=== PATIENT | male | born 1960 | race Caucasian/White ===

== ENCOUNTER 2016-12-11 12:29 | Outpatient (CLI) | payer OTHER ==
--- NOTE | 2016-12-11 14:25 | DIAGNOSTIC IMAGING REPORT ---
PROCEDURE: MR LUMBAR SPINE W/O CONTRAST INDICATION: SPONDYLOLISTHESIS TECHNIQUE: Noncontrast T1, T2, and STIR sagittal images. T1 and T2 axial images. COMPARISON: None. FINDINGS: Normal alignment without fracture or suspicious osseous lesion. Mild spur formation with desiccation of the lumbar discs and multilevel disc bulging. Normal conus. Paraspinal soft tissues are normal. L1-2: Normal appearance. L2-3: Minor disc bulging/spur complex but no significant foraminal narrowing. No spinal stenosis. L3-4: Moderate broad-based disc bulge/spur complex with mild facet arthropathy. There is mild to moderate right and mild left foraminal stenosis. Mild spinal stenosis. L4-5: Moderate broad-based disc bulge/spur complex cyst with moderately severe facet arthropathy. Mild to moderate bilateral foraminal stenosis. Mild spinal stenosis. L5-S1: Large left posterior disc herniation superimposed on a broad-based disc bulge with spur complex and mild facet from arthropathy. There is severe left foraminal stenosis. No spinal stenosis. IMPRESSION: 1. Moderate degenerative changes with multilevel disc bulging 2. Mild L3-4 and L4-5 spinal stenosis 3. Mild to moderate right and mild left L3-4, mid to moderate bilateral L4-5 foraminal stenosis 4. L5-S1 large left posterior disc herniation with severe left foraminal stenosis
== END 2016-12-12 15:51 | disposition home or self-care (01) ==
LOC: MRI SRH 12:29
DX: M51.26 Other intervertebral disc displacement, lumbar region (principal); M51.27 Other intervertebral disc displacement, lumbosacral region; M48.06 Spinal stenosis, lumbar region; M48.07 Spinal stenosis, lumbosacral region